=== PATIENT | male | born 1980 | race Caucasian/White ===

== ENCOUNTER 2016-12-13 11:50 | Emergency (ER) | payer SELFPAY ==
[~2016-12-13] VITALS: Ht 172.7 cm; Wt 63.5 kg
[2016-12-13] MEDS ORDERED: IV NS 0.9% 2,000 ML ONE (12:00)
[2016-12-13] MEDS ORDERED: IV SET PRIMARY 1 EA INFUS.SET MC ONE (12:00)
--- NOTE | 2016-12-13 12:00 | NUR ---
PT BIB [facility] C/O DRUG ABUSE INCLUDING MARIJUANA AND METH USE. PT REPORTS FEELING WEAK AND ANXIOUS. PT NOTED TO BE HYPERVENTILATING, NOT COMPLIANT WITH STAFF INSTRUCTION, FIDGETY, AND REFUSING TO SIT STILL. EXPLAINED PLAN OF CARE MULTIPLE TIMES WITH MINIMAL CHANGE OF BEHAVIOR. SKIN WARM NONDIAPHORETIC. ON MONITOR IN ER BED 15.
[2016-12-13] MEDS ORDERED: LORAZEPAM INJ 2 MG/ML VIAL ONE (12:01)
[2016-12-13] MEDS ORDERED: IV NS 0.9% 1,000 ML BAG IV ONE (12:30)
[2016-12-13] MEDS ORDERED: LORAZEPAM INJ 2 MG/ML VIAL IV ONE (12:30)
[2016-12-13] MEDS ORDERED: ACETAMINOPHEN ES 500 MG TABLET ONE (12:38)
--- NOTE | 2016-12-13 12:44 | NUR ---
PT GIVEN TYLENOL 1000MG PER VERBAL ORDER FOR HEADACHE. PT APPEARS MUCH CALMER AND NO SOB NOTED BUT REMAINS NON-COMPLIANT WITH CARE. PT PULLED OUT HIS IV STATING "WELL I DIDN'T KNOW WHAT WAS IN THERE AND I TAKE DRUGS" DESPITE HAVING HIS MEDICATIONS BE EXPLAINED TO HIM MULTIPLE TIMES WHEN THEY WERE INITIATED. DENIES SI/HI.
== END 2016-12-13 12:58 | disposition home or self-care (01) ==
LOC: ER 11:53
DX: F15.10 Other stimulant abuse, uncomplicated (principal); Z71.6 Tobacco abuse counseling
CPT/HCPCS: 82962; 93005; 96361; 96374; 99284; A4606; J2060; J7030; Z7610